=== PATIENT | male | born 1985 | race Caucasian/White ===

== ENCOUNTER 2018-09-04 17:13 | Emergency (ER) | payer SELFPAY ==
[~2018-09-04] VITALS: Ht 185.4 cm; Wt 90.7 kg
--- NOTE | 2018-09-04 17:18 | NUR ---
PT AMBULATES TO BED 8
--- NOTE | 2018-09-04 17:18 | NUR ---
AAO x4 33 y MALE 6FT FALL TODAY AND FELL ONTO A CART WITH C/O INJURED RIGHT RIBS PAIN TENDERNESS AND REDNESS AND RUE INJURY. DENIES LOC NO OBVIOUS DEFORMITIES NOTED HX--DENIES RX--NONE
[2018-09-04 17:20] VITALS: BP 132/78
--- NOTE | 2018-09-04 17:29 | NUR ---
PT TAKEN TO XRAY VIA WHEELCHAIR
--- NOTE | 2018-09-04 17:46 | NUR ---
PT RETURNED FROM XRAY
[2018-09-04] MEDS ORDERED: ONDANSETRON 4 MG ODT PO ONE (18:00)
[2018-09-04] MEDS ORDERED: MORPHINE SULFATE 4 MG/ML SYR IM ONE (18:00)
--- NOTE | 2018-09-04 18:18 | NUR ---
Patient medicated, placed on monitor, will continue to monitor
--- NOTE | 2018-09-04 18:37 | NUR ---
Alert, awake, oriented, cooperate patient stated pain has subsided to 2/10 post medication. Answer questions appropriately, no bradypnea noted. Waiting for further orders will continue to monitor.
--- NOTE | 2018-09-04 19:15 | NUR ---
Report given to BETH Carvajal for continuation of care
[2018-09-04 19:35] VITALS: BP 117/75
--- NOTE | 2018-09-04 19:36 | NUR ---
Patient discharged with v/s stable. Written and verbal after care instructions given and explained. Patient alert, oriented and verbalized understanding of instructions. Ambulatory with steady gait. All questions addressed prior to discharge. ID band removed. Patient advised to follow up with PMD. Rx of NORCO AND NAPROSYN given. Patient educated on indication of medication including possible reaction and side effects. Opportunity to ask questions provided and answered.
== END 2018-09-04 19:35 | disposition home or self-care (01) ==
LOC: MED 17:13
DX: S20.211A Contusion of right front wall of thorax, initial encounter (principal); S50.11XA Contusion of right forearm, initial encounter; R10.9 Unspecified abdominal pain; W13.2XXA Fall from, out of or through roof, initial encounter; Y93.89 Activity, other specified; Y92.89 Other specified places as the place of occurrence of the external cause; Y99.0 Civilian activity done for income or pay
CPT/HCPCS: 71101; 73060; 73090; 96372; 99283; J2270; Q0162

== ENCOUNTER 2018-09-17 19:00 | Emergency (ER) | payer SELFPAY ==
[~2018-09-17] VITALS: Ht 182.9 cm; Wt 90.7 kg
[2018-09-17 19:21] VITALS: BP 131/77
--- NOTE | 2018-09-17 19:23 | NUR ---
TO LOBBY A/W BED, AMBULATORY, VSS, LINO NOTED
--- NOTE | 2018-09-17 19:58 | NUR ---
Amb to Bed 3.
--- NOTE | 2018-09-17 20:24 | NUR ---
PT TO ED WITH C/O LOWER BACK PAIN RADIATING TO L LEG X TODAY S/P MOVING FURNITURE. NO OBVIOUS INJURY OR DEFORMITY NOTED. CMS INTACT. +ROM. PT PLACED INTO BED, PENDING MD WAGNER. PMH--DENIES RX--DENIES
[2018-09-17] MEDS ORDERED: DIAZEPAM 5 MG TAB PO ONE (20:55)
[2018-09-17] MEDS ORDERED: KETOROLAC 30 MG/ML VIAL IM ONE (20:55)
--- NOTE | 2018-09-17 21:50 | NUR ---
PT RESTING COMFORTABLY. NO NEW COMPLAINTS.
--- NOTE | 2018-09-17 22:01 | NUR ---
Patient discharged with v/s stable. Written and verbal after care instructions given and explained. Patient alert, oriented and verbalized understanding of instructions. Ambulatory with steady gait. All questions addressed prior to discharge. ID band removed. Patient advised to follow up with PMD. Rx of NAPROSYN, VALIUM given. Patient educated on indication of medication including possible reaction and side effects. Opportunity to ask questions provided and answered.
[2018-09-17 22:02] VITALS: BP 125/71
== END 2018-09-17 22:02 | disposition home or self-care (01) ==
LOC: MED 19:00
DX: S39.012A Strain of muscle, fascia and tendon of lower back, initial encounter (principal); M25.571 Pain in right ankle and joints of right foot; M25.561 Pain in right knee; X50.0XXA Overexertion from strenuous movement or load, initial encounter; Y93.89 Activity, other specified; Y92.89 Other specified places as the place of occurrence of the external cause; Y99.8 Other external cause status
CPT/HCPCS: 72100; 96372; 99283; J1885

== ENCOUNTER 2021-11-01 11:45 | Emergency (ER) | payer SELFPAY ==
[~2021-11-01] VITALS: Ht 188 cm; Wt 104.8 kg
[2021-11-01 11:56] VITALS: BP 149/93
[2021-11-01] MEDS ORDERED: KETOROLAC 30 MG/ML VIAL IM ONE (12:25)
[2021-11-01] MEDS ORDERED: PENI500T20 PO (12:40)
[2021-11-01] MEDS ORDERED: NAPR-54 PO (12:41)
[2021-11-01] MEDS ORDERED: PROM118S5 PO (12:41)
[2021-11-01 13:10] VITALS: BP 149/93
== END 2021-11-01 13:10 | disposition home or self-care (01) ==
LOC: MED 11:45
DX: J06.9 Acute upper respiratory infection, unspecified (principal); Z79.899 Other long term (current) drug therapy
CPT/HCPCS: 96372; 99283; J1885